=== PATIENT | female | born 1985 | race Two or more races ===

== ENCOUNTER → 2021-11-08 | Emergency (ER) | payer OTHER ==
[~2021-11-08] VITALS: Ht 165.1 cm; Wt 56.7 kg
== END | disposition left against medical advice (07) ==
LOC: ER 19:13
DX: O20.9 Hemorrhage in early pregnancy, unspecified (principal); Z3A.13 13 weeks gestation of pregnancy

== ENCOUNTER 2022-04-28 09:45 | Inpatient (IN) | payer OTHER ==
[~2022-04-28] VITALS: Ht 165.1 cm; Wt 67.1 kg
[2022-05-03] MEDS ORDERED: PRENATAL CAPLE1 EAC1 PO (10:54)
== END 2022-05-05 12:52 | disposition home or self-care (01) | DRG 807 ==
LOC: EDSTATUS 09:45 → LDR 05-03 06:27 → OB/GYN 05-03 09:45
PROVIDERS: ADMIT Obstetrics & Gynecology; ATTEND Obstetrics & Gynecology
PROC: 4A1HXCZ Monitoring of Products of Conception, Cardiac Rate, External Approach (ICD-10-PCS; 2022-05-03)
PROC: 10E0XZZ Delivery of Products of Conception, External Approach (ICD-10-PCS; principal; 2022-05-04)
PROC: 0W8NXZZ Division of Female Perineum, External Approach (ICD-10-PCS; 2022-05-04)
DX: O80 Encounter for full-term uncomplicated delivery (principal); Z37.0 Single live birth; Z3A.39 39 weeks gestation of pregnancy; Z20.822 Contact with and (suspected) exposure to COVID-19